=== PATIENT | female | born 1960 | race Caucasian/White ===

== ENCOUNTER 2018-06-18 22:21 | Emergency (ER) | payer MEDICAID ==
[~2018-06-18] VITALS: Ht 160 cm; Wt 50.6 kg
[~2018-06-18 22:21] MED LIST: CIP500T PO; FLOOS OT; IBUP-1984 PO; NO HOME MEDS
[2018-06-18] MEDS ORDERED: IBUP-1985 PO (23:56)
[2018-06-19 00:01] VITALS: BP 133/81
== END 2018-06-19 00:07 | disposition home or self-care (01) ==
LOC: ER 22:22
DX: S46.001A Unspecified injury of muscle(s) and tendon(s) of the rotator cuff of right shoulder, initial encounter (principal); G89.29 Other chronic pain; J45.909 Unspecified asthma, uncomplicated; L40.9 Psoriasis, unspecified; Z88.0 Allergy status to penicillin; Z88.2 Allergy status to sulfonamides; Z88.5 Allergy status to narcotic agent; Z91.012 Allergy to eggs; W19.XXXA Unspecified fall, initial encounter; Y93.89 Activity, other specified; Y92.89 Other specified places as the place of occurrence of the external cause; Y99.8 Other external cause status
CPT/HCPCS: 73060; 99284; A4565

== ENCOUNTER 2019-06-22 21:23 | Emergency (ER) | payer MEDICAID ==
[~2019-06-22] VITALS: Ht 157.5 cm; Wt 50.0 kg
[~2019-06-22 21:23] MED LIST changes: +IBUP-1985 PO
[2019-06-22] MEDS ORDERED: ipratropium/albuterol 3ml nebule NEB ONE (23:45)
--- NOTE | 2019-06-23 00:39 | NUR ---
pt resting in bed talkative . rates pain 03/25 ' i am not a cry babay i chio get as sense of humor with my pain " poc of updated with PA . breathing tx given by resp . lungs cta . all vss no acute distress noted . encouraged pt to elevate leg tx with heat or ice as needed.
[2019-06-23 00:57] VITALS: BP 107/66
== END 2019-06-23 01:01 | disposition home or self-care (01) ==
LOC: ER 21:23
DX: S93.692A Other sprain of left foot, initial encounter (principal); S86.812A Strain of other muscle(s) and tendon(s) at lower leg level, left leg, initial encounter; J45.901 Unspecified asthma with (acute) exacerbation; G89.29 Other chronic pain; M79.7 Fibromyalgia; M06.9 Rheumatoid arthritis, unspecified; F17.210 Nicotine dependence, cigarettes, uncomplicated; R06.02 Shortness of breath; Z88.0 Allergy status to penicillin; Z88.5 Allergy status to narcotic agent; Z91.012 Allergy to eggs; Z88.2 Allergy status to sulfonamides; X50.1XXA Overexertion from prolonged static or awkward postures, initial encounter; Y93.89 Activity, other specified; Y92.89 Other specified places as the place of occurrence of the external cause; Y99.9 Unspecified external cause status
CPT/HCPCS: 71045; 73590; 73630; 94640; 94760; 99283

== ENCOUNTER 2025-02-16 14:41 | Outpatient (CLI) | payer MEDICARE, MEDICAID ==
[~2025-02-16 14:41] MED LIST changes: +ALBU18HF2 INH; -CIP500T PO; -FLOOS OT; -IBUP-1984 PO; +KEN0.1O TOP; +TACR30OI4 TOP
--- NOTE | 2025-02-16 18:45 | RADIOLOGY REPORT ---
EXAM: CT CT LOWER EXTREMITY INDICATION: OTHER SPECIFIED DISORDERS OF BONE, THIGH TECHNIQUE: Axial images of left lower extremity have been obtained along with coronal and sagittal re formatted images. All CT scans at this facility use dose modulation, iterative reconstruction, and/or weight based dosing when appropriate to reduce radiation dose to as low as reasonably achievable. COMPARISON: None FINDINGS: BONES: No CT evidence of an acute fracture or aggressive osseous lesion. Laterally applied plate and screw construct. No osseous lucency along the hardware bone interfaces. No perihardware fracture. MUSCLES: No abnormal attenuation. JOINT SPACES: No joint effusion. TENDONS/LIGAMENTS: Intact. OTHER: None. IMPRESSION: 1. Laterally applied plate and screw construct without CT evidence of hardware complication. 2. No CT evidence of an acute fracture.
== END 2025-02-16 23:59 | disposition home or self-care (01) ==
LOC: RAD 14:41
PROVIDERS: ATTEND Physician Assistant Surgical
DX: M89.8X5 Other specified disorders of bone, thigh (principal)
CPT/HCPCS: 73700